=== PATIENT | male | born 1960 | race Caucasian/White ===

== ENCOUNTER 2020-12-25 08:30 | Day surgery (SDC) | payer OTHER ==
[2020-12-24 15:07] VITALS: BMI 50.2
[2020-12-25] MEDS ORDERED: Oxymetazoline HCl 0.05% (30 ML BOT) ONE ×2 (09:01→13:52)
[2020-12-25] MEDS ORDERED: AFRIN NASAL MIST 15 ML BOT ONE (09:40)
[2020-12-25] MEDS ORDERED: Lidocaine 1% w/Epinephrine 1:100K 20 ML VIAL ONE (09:40)
[2020-12-25] MEDS ORDERED: Fentanyl 100 MCG/2 ML VIAL ONE (09:43)
[2020-12-25] MEDS ORDERED: SUGAMMADEX SODIUM 200 MG/2 ML VIAL ONE (09:43)
[2020-12-25] MEDS ORDERED: Famotidine/PF 20 mg/2ml Vial ONE (09:43)
[2020-12-25] MEDS ORDERED: Dexamethasone 20 MG/5 ML VIAL ONE (11:19)
[2020-12-25] MEDS ORDERED: Rocuronium Bromide 10 MG/ML (10ML VIAL) ONE (11:19)
[2020-12-25] MEDS ORDERED: PROPOFOL 200 MG/20 ML VIAL ONE (11:19)
[2020-12-25] MEDS ORDERED: Lidocaine 1% PF 5 ML VIAL ONE (11:19)
[2020-12-25] MEDS ORDERED: Ondansetron PF 4 MG/2 ML Vial ONE (11:19)
[2020-12-25] MEDS ORDERED: EPINEPHrine 1 MG/ML AMP ONE (11:29)
[2020-12-25] MEDS ORDERED: Triamcinolone 40 MG/ML VIAL ONE (11:38)
== END 2020-12-25 14:40 | disposition home or self-care (01) ==
LOC: SDC 08:30
PROVIDERS: ATTEND Specialist
DX: J33.9 Nasal polyp, unspecified (principal); J32.9 Chronic sinusitis, unspecified; G47.30 Sleep apnea, unspecified; E66.9 Obesity, unspecified; Z68.43 Body mass index [BMI] 50.0-59.9, adult
CPT/HCPCS: 93005; 93010; J0171; J3010; J3301; S0028